=== PATIENT | female | born 1960 | race Caucasian/White ===

== ENCOUNTER 2017-02-08 19:23 | Emergency (ER) | payer MEDICAID ==
--- NOTE | 2017-02-08 19:31 | EDPHY ---
H & P Source: Patient, EMS - Medical/Surgical History Other PMH: Unable to obtain medical history - Social History Smoking Status: Unknown if ever smoked HPI/ROS: HPI CHIEF COMPLAINT: Alcohol Intoxication HISTORY OF PRESENT ILLNESS: This patient 56-year-old female she presents emergency room by EMS for acute alcohol intoxication apparently got in an argument with her mom who is her calciner operator helper/physical altercation and now is under police custody. The patient admits to me drinking lots of alcohol this evening. She will quantify or specify exactly which she drank. She denies any co-ingestion or other drugs. Denies wanting to hurt herself or anybody else. Upon arrival here in the emergency room by EMS she is intoxicated smells of alcohol slurring her speech with horizontal beating nystagmus with acute alcohol intoxication. Past Medical History: ?CVA Past Surgical History: Denies recent surgical history Social History: Alcohol use Family History: Noncontributory ROS REVIEW OF SYSTEMS: Review of systems limited due to patient's clinical state of intoxication. Exam Constitutional Intoxicated, triage nursing summary reviewed, vital signs reviewed, Sleepy, smells of alcohol Eyes normal conjunctivae and sclera, horizontal beating nystagmus consistent acute alcohol intoxication, otherwise pupils equal and react to light HENT normal inspection, atraumatic, moist mucus membranes, no epistaxis, neck supple/ no meningismus, no raccoon eyes. Respiratory clear to auscultation bilaterally, normal breath sounds, no respiratory distress, no wheezing. Cardiovascular rate normal, regular rhythm, no murmur, no edema, distal pulses normal. Gastrointestinal soft, non-tender, no rebound, no guarding, normal bowel sounds, no distension, no pulsatile mass. Genitourinary no CVA tenderness. Musculoskeletal no midline vertebral tenderness, full range of motion, no calf swelling, no tenderness of extremities, no meningismus, good pulses, neurovascularly intact. Skin pink, warm, & dry, no rash, skin atraumatic. Neurologic sleepy, intoxicated with alcohol,, alert and oriented x 3, AAOx3, moves all 4 extremities equally, motor intact, sensory intact, CN II-XII intact , , normal vision, normal speech. Psychiatric normal mood/affect. Heme/Lymph/Immune no lymphadenopathy. Differential Diagnosis: Includes but is not limited to in a particular order acute alcohol intoxication, alcohol abuse, dehydration, electrolyte abnormality , nausea vomiting from acute alcohol intoxication Medical Decision Making: Plan for this patient IV establishment, IV fluid bolus , check electrolytes, alcohol level. quality assurance monitor final. Re-evaluate. Re-evaluation: 2016: The patient does have elevated alcohol level. Also noted a see med if and mildly elevated but not acutely toxic. Unknown time of ingestion of unknown how much she took. Not endorsing any Tylenol overdose. Will need to repeat Tylenol and aspirin 4 hour level. She is under police custody. They would like to be notified when she is discharged Patient signed over to at 9pm shift change. (Cyrus Mendieta) Constitutional: Initial Vital Signs Temperature (C) 36.8 C 02/08/17 19:39 Heart Rate 105 H 02/08/17 19:39 Respiratory Rate 17 02/08/17 19:39 Blood Pressure 119/92 H 02/08/17 19:39 O2 Sat (%) 94 02/08/17 19:39 O2 Delivery Mode Room Air Allergies/Adverse Reactions: iron dextran complex Allergy (Verified 02/08/17 19:39) methadone Allergy (Verified 02/08/17 19:39) propoxyphene Allergy (Verified 02/08/17 19:39) tramadol Allergy (Verified 02/08/17 19:39) Home Medications: Medication Instructions Recorded Unobtainable 05/02/16 Medical Decision Making ED Course/Re-evaluation: 11:00 p.m. care transferred to Dr. Barlow. (Cononr Boland) 2300 patient signed out to me from Dr. Boland pending 4 hour Tylenol level. If this is negative patient will need medical clearance for correction. 0055 4 hour Tylenol level is 0. Patient is ambulatory and is now medically clear for correction. (Brody Barlow) - Data Points Laboratory Results: Laboratory Results 02/08/17 19:40 02/08/17 19:40 02/08/17 02/08/17 02/08/17 23:40 19:40 19:40 WBC RBC Hgb Hct MCV MCH MCHC RDW Plt Count MPV Neut % (Auto) Lymph % (Auto) [place] % (Auto) Eos % (Auto) Baso % (Auto) Nucleat RBC Rel Count Absolute Neuts (auto) Absolute Lymphs (auto) Absolute Monos (auto) Absolute Eos (auto) Absolute Basos (auto) Absolute Nucleated RBC Immature Gran % Immature Gran # Sodium 144 mEq/L mEq/L (134-144) Potassium 3.4 mEq/L L mEq/L (3.5-5.2) Chloride 111 mEq/L H mEq/L (97-110) Carbon Dioxide 14 mEq/l L mEq/l (22-31) Anion Gap 19 mEq/L H mEq/L (8-16) BUN 21 mg/dL mg/dL (7-23) Creatinine 0.9 mg/dL mg/dL (0.6-1.0) Estimated GFR > 60 Glucose 100 mg/dL mg/dL (70-100) Calcium 9.5 mg/dL mg/dL (8.5-10.4) Salicylates < 1.0 mg/dL L mg/dL 1.4 mg/dL L mg/dL 1.4 mg/dL L mg/dL (2.0-20.0) (2.0-20.0) (2.0-20.0) Acetaminophen < 10 mcg/mL L mcg/mL 17 mcg/mL mcg/mL 18 mcg/mL mcg/mL (10.0-30.0) (10.0-30.0) (10.0-30.0) Ethyl Alcohol 297 mg/dL H mg/dL (0-10) 02/08/17 19:40 WBC 9.08 10^3/uL 10^3/uL (3.80-9.50) RBC 4.50 10^6/uL 10^6/uL (4.18-5.33) Hgb 12.1 g/dL L g/dL (12.6-16.3) Hct 37.4 % L % (38.0-47.0) MCV 83.1 fL fL (81.5-99.8) MCH 26.9 pg L pg (27.9-34.1) MCHC 32.4 g/dL g/dL (32.4-36.7) RDW 15.7 % H % (11.5-15.2) Plt Count 332 10^3/uL 10^3/uL (150-400) MPV 9.7 fL fL (8.7-11.7) Neut % (Auto) 47.8 % % (39.3-74.2) Lymph % (Auto) 37.2 % % (15.0-45.0) [place] % (Auto) 7.0 % % (4.5-13.0) Eos % (Auto) 6.8 % % (0.6-7.6) Baso % (Auto) 0.9 % % (0.3-1.7) Nucleat RBC Rel Count 0.0 % % (0.0-0.2) Absolute Neuts (auto) 4.33 10^3/uL 10^3/uL (1.70-6.50) Absolute Lymphs (auto) 3.38 10^3/uL H 10^3/uL (1.00-3.00) Absolute Monos (auto) 0.64 10^3/uL 10^3/uL (0.30-0.80) Absolute Eos (auto) 0.62 10^3/uL H 10^3/uL (0.03-0.40) Absolute Basos (auto) 0.08 10^3/uL 10^3/uL (0.02-0.10) Absolute Nucleated RBC 0.00 10^3/uL 10^3/uL (0-0.01) Immature Gran % 0.3 % % (0.0-1.1) Immature Gran # 0.03 10^3/uL 10^3/uL (0.00-0.10) Sodium Potassium Chloride Carbon Dioxide Anion Gap BUN Creatinine Estimated GFR Glucose Calcium Salicylates Acetaminophen Ethyl Alcohol Medications Given: Discontinued Medications Sodium Chloride (Ns) 1,000 mls @ 0 mls/hr IV ONCE ONE; Wide Open PRN Reason: Protocol Stop: 02/08/17 19:33 Last Admin: 02/08/17 19:57 Dose: 1,000 mls Sodium Chloride (Ns) 1,000 mls @ 0 mls/hr IV ONCE ONE PRN Reason: Wide Open Stop: 02/08/17 20:03 Last Admin: 02/08/17 21:30 Dose: 1,000 mls Departure - Departure Disposition: Home, Routine, Self-Care Clinical Impression: Alcoholic intoxication Qualifiers: Complication of substance-induced condition: uncomplicated Qualified Code(s): F10.920 - Alcohol use, unspecified with intoxication, uncomplicated Condition: Good Instructions: Alcohol Intoxication (ED) Additional Instructions: Medically clear for correction. Referrals: Patient,NotPresent [Primary Care Provider] - As per Instructions
[2017-02-08] MEDS ORDERED: NS 1,000 ML IV ONE ×2 (19:32→20:02)
[2017-02-08 19:40] VITALS: TEMP 98.2
[2017-02-08 19:47] LABS: % IMMATURE GRANULYOCYTES 0.3 % (0.0-1.1); ABSOLUTE IMMATURE GRANULOCYTES 0.03 10^3/uL (0.00-0.10); ADD DIFF? NO; ADD MORPH? NO; ADD SCAN? NO; ATYPICAL LYMPHOCYTE FLAG 20 (0-99); FRAGMENT RBC FLAG 0 (0-99); HEMATOCRIT 37.4 % (38.0-47.0); HEMOGLOBIN 12.1 g/dL (12.6-16.3); LEFT SHIFT FLG 0 (0-99); LIPEMIA HEMOLYSIS FLAG 80 (0-99); MEAN CELL HEMOGLOBIN 26.9 pg (27.9-34.1); MEAN CELL HEMOGLOBIN CONCENTR. 32.4 g/dL (32.4-36.7); MEAN CELL VOLUME 83.1 fL (81.5-99.8); MEAN PLATELET VOLUME 9.7 fL (8.7-11.7); PLATELET CLUMPS FLAG 0 (0-99); PLATELET COUNT 332 10^3/uL (150-400); RED CELL DISTRIBUTION WIDTH 15.7 % (11.5-15.2)
[2017-02-08 20:00] LABS: ANION GAP 19 mEq/L (8-16); CALCIUM 9.5 mg/dL (8.5-10.4); CARBON DIOXIDE 14 mEq/l (22-31); CHLORIDE 111 mEq/L (97-110); CREATININE 0.9 mg/dL (0.6-1.0); ETHANOL SERUM 297 mg/dL (0-10); GLOMERULAR FILTRATION RATE > 60; GLUCOSE 100 mg/dL (70-100); POTASSIUM 3.4 mEq/L (3.5-5.2); SALICYLATE 1.4 mg/dL (2.0-20.0); SODIUM 144 mEq/L (134-144)
[2017-02-08 23:29] LABS: SALICYLATE 1.4 mg/dL (2.0-20.0)
[2017-02-08 23:42] VITALS: O2SAT 92
[2017-02-09 00:35] LABS: SALICYLATE < 1.0 mg/dL (2.0-20.0)
[2017-02-09 01:32] VITALS: BP 93/61; PULSE 86; RESP 16
== END 2017-02-09 01:27 | disposition home or self-care (01) ==
LOC: EDUNIT# → MERGE 19:23
DX: F10.920 Alcohol use, unspecified with intoxication, uncomplicated (principal)
CPT/HCPCS: G0480

== ENCOUNTER 2017-02-23 18:51 | Emergency (ER) | payer MEDICAID ==
[2017-02-23 18:55] VITALS: BP 118/91; PULSE 129; RESP 18; TEMP 98.1; O2SAT 94
--- NOTE | 2017-02-23 18:58 | EDPHY ---
H & P Stated Complaint: medical clearance--accompanied by officer Time Seen by Provider: 02/23/17 18:56 - Personal History Current Tetanus Diphtheria and Acellular Pertussis (TDAP): Yes Tetanus Vaccine Date: < 10 YEARS - Medical/Surgical History Hx Asthma: No Hx Chronic Respiratory Disease: No Hx Diabetes: No Hx Cardiac Disease: No Hx Renal Disease: No Hx Cirrhosis: No Hx Alcoholism: Yes Hx HIV/AIDS: No Hx Splenectomy or Spleen Trauma: No Other PMH: denies - Social History Smoking Status: Former smoker Constitutional: Initial Vital Signs Temperature (C) 36.7 C 02/23/17 18:51 Heart Rate 129 H 02/23/17 18:51 Respiratory Rate 18 02/23/17 18:51 Blood Pressure 118/91 H 02/23/17 18:51 O2 Sat (%) 94 02/23/17 18:51 O2 Delivery Mode Room Air Allergies/Adverse Reactions: iron dextran complex Allergy (Verified 02/08/17 19:39) methadone Allergy (Verified 02/08/17 19:39) propoxyphene Allergy (Verified 02/08/17 19:39) tramadol Allergy (Verified 02/08/17 19:39) Home Medications: Medication Instructions Recorded Unobtainable 05/02/16 morphINE IR 05/14/16 Medical Decision Making ED Course/Re-evaluation: CHIEF COMPLAINT: "drunk" HISTORY OF PRESENT ILLNESS: The patient is a 56 y/o female arriving in [facility] custody for medical clearance at the request of the longterm nurse. Per officer, the patient admitted to alcohol use earlier today, but denied any other ingestions. An officer at the longterm found multiple pill bottles and the longterm nurse requested medical evaluation at the ED in case the patient had consumed something else. The patient denies anything other than alcohol use. She has no complaints. REVIEW OF SYSTEMS: A 10 point review of systems was performed and is negative with the exception of the elements mentioned in the history of present illness. PHYSICAL EXAM: HR, BP, O2 Sat, RR. Temp noted General Appearance: Alert, well hydrated, appropriate, and non-toxic appearing. Head: Atraumatic without scalp tenderness or obvious injury Eyes: Pupils equal, round, reactive to light and accommodation, EOMI, no trauma , no injection. Nose: Atraumatic, no rhinorrhea, clear. Throat: Mucus membranes moist. Neck: Supple, nontender, no lymphadenopathy. Respiratory: No retractions, no distress, no wheezes, and no accessory muscle use. Lungs are clear to auscultation bilaterally. Cardiovascular: Regular rate and rhythm, no murmurs, rubs, or gallops. Good capillary refill all extremities. Gastrointestinal: Abdomen is soft, nontender, non-distended, no masses, no rebound, no guarding, no peritoneal signs. Musculoskeletal: Normal active ROM of all extremities, atraumatic. Neurological: Alert, appropriate, and interactive. Nonfocal neuro exam. Slurred speech consistent with baseline and alcohol use. Skin: No rashes, good turgor, no nodules on palpation. Past medical history: Alcohol abuse, CVA Past surgical history: denies Family history: noncontributory Social history: alcohol abuse, in PD custody for intoxicated driving DIFFERENTIAL DIAGNOSIS: The differential diagnosis for the patient's presentation included but was not limited to alcohol intoxication, persisting deficits from prior CVA. MEDICAL DECISION MAKING: This is a 56 y/o female with a history of a CVA who presents for medical clearance from the longterm due to concern for drug ingestion. The patient has no complaints. Urine tox ordered. Breath alcohol is 102. UA tox is only nonnegative for opiates. Patient will be discharged back to the longterm in stable condition. Return precautions given. - Data Points Laboratory Results: 02/23/17 19:06 Urine Opiates Screen NON-NEGATIVE H (NEGATIVE) Urine Barbiturates NEGATIVE (NEGATIVE) Ur Phencyclidine Scrn NEGATIVE (NEGATIVE) Ur Amphetamine Screen NEGATIVE (NEGATIVE) Ur Amphetamines Screen Pending U Benzodiazepines Scrn NEGATIVE (NEGATIVE) Urine Cocaine Screen NEGATIVE (NEGATIVE) U Marijuana (THC) Screen NEGATIVE (NEGATIVE) Departure - Departure Disposition: Home, Routine, Self-Care Clinical Impression: Alcoholic intoxication Qualifiers: Complication of substance-induced condition: uncomplicated Qualified Code(s): F10.920 - Alcohol use, unspecified with intoxication, uncomplicated Condition: Good Instructions: Alcohol Intoxication (ED) Additional Instructions: Medically clear for longterm. Patient's breath alcohol is 102. She has a prior history of a stroke with a baseline speech impediment. This is exacerbated by alcohol causing her speech to sound slurred. Referrals: NONE *PRIMARY CARE P,. [Primary Care Provider] - As per Instructions [facility] 24 Hours [Outside] - As per Instructions Report Scribed for: Matt Ayala Report Scribed by: Pamella Macedo Date of Report: 02/23/17 Time of Report: 19:11
[2017-02-23 19:44] LABS: PHENCYCLIDINE URINE BCH < 6 ng/ml (NEGATIVE); PHENCYCLIDINE URINE BCH NEGATIVE (NEGATIVE); TETRAHYDROCANNABINOL URINE < 5 ng/mL (NEGATIVE); TETRAHYDROCANNABINOL URINE NEGATIVE (NEGATIVE)
== END 2017-02-23 19:40 | disposition home or self-care (01) ==
DX: F10.120 Alcohol abuse with intoxication, uncomplicated (principal); Z86.73 Personal history of transient ischemic attack (TIA), and cerebral infarction without residual deficits; Z87.891 Personal history of nicotine dependence
CPT/HCPCS: 80305; 80307; G0480

== ENCOUNTER 2018-06-03 20:50 | Emergency (ER) | payer MEDICAID ==
[2018-06-03 20:56] VITALS: BP 123/84
--- NOTE | 2018-06-03 21:01 | EDPHY ---
H & P Stated Complaint: bleeding s/p srgy 05/30 Time Seen by Provider: 06/03/18 21:12 HPI/ROS: HPI CHIEF COMPLAINT: Wet splint, splint takedown, bleeding HISTORY OF PRESENT ILLNESS: This is a very pleasant 57-year-old female she has had a history of a CVA, only takes aspirin, has expressive aphasia, presents emergency room with a wet left thumb spica splint, additionally some bleeding underneath it. Patient states she recently had some surgery at [facility] on Wednesday or 5 days ago. She had this for torn cartilage in a fracture of her thumb. She states she has pains placed in it. She tells me she is due to have this splint in place soft for 2 weeks. And then transition to hard splint. Patient denies any fever. She does report that she got this wet during 1 of her showers. The patient's hand surgeons Dr. Acosta. Past Medical History: History of CVA Past Surgical History: Left thumb surgery on Wednesday. 5 days ago. Social History: Denies drugs alcohol tobacco. Family History: Noncontributory ROS REVIEW OF SYSTEMS: 10 Systems were reviewed and negative with the exception of the elements mentioned in the history of present illness. Exam Constitutional triage nursing summary reviewed, vital signs reviewed, awake/ alert. Eyes normal conjunctivae and sclera, EOMI, PERRLA. HENT normal inspection, atraumatic, moist mucus membranes, no epistaxis, neck supple/ no meningismus, no raccoon eyes. Respiratory clear to auscultation bilaterally, normal breath sounds, no respiratory distress, no wheezing. Cardiovascular rate normal, regular rhythm, no murmur, no edema, distal pulses normal. Gastrointestinal soft, non-tender, no rebound, no guarding, normal bowel sounds, no distension, no pulsatile mass. Genitourinary no CVA tenderness. Musculoskeletal left: In a soft splint. The splint is wet. no midline vertebral tenderness, full range of motion, no calf swelling, no tenderness of extremities, no meningismus, good pulses, neurovascularly intact. Skin pink, warm, & dry, no rash, skin atraumatic. Neurologic awake, alert and oriented x 3, AAOx3, moves all 4 extremities equally, motor intact, sensory intact, CN II-XII intact, normal cerebellar, normal vision, normal speech. Psychiatric normal mood/affect. Heme/Lymph/Immune no lymphadenopathy. Differential Diagnosis: Includes but is not limited to in a particular order need for new splint, evaluate for wound for bleeding and infection. Medical Decision Making: Plan for this patient will take her splint down. Evaluated wound for bleeding or infection. And will re-splint her. Re-evaluation: Patient splint was taken down. The wound was evaluated. There is no signs of infection. No significant bleeding. It appears that her splint got wet. There is no wet gangrene or evidence of infection on exam. The patient's surgical wound appears clean, dry and intact. Plan will be for re-splint. Follow-up hand surgeon. Return if worsening symptoms. No signs of compartment syndrome on exam neurovascular intact. Source: Patient - Personal History Current Tetanus/Diphtheria Vaccine: Yes Current Tetanus Diphtheria and Acellular Pertussis (TDAP): Yes Tetanus Vaccine Date: < 10 YEARS - Medical/Surgical History Hx Asthma: No Hx Chronic Respiratory Disease: No Hx Diabetes: No Hx Cardiac Disease: No Hx Renal Disease: No Hx Cirrhosis: No Hx Alcoholism: Yes Hx HIV/AIDS: No Hx Splenectomy or Spleen Trauma: No Other PMH: ETOH abuse - Social History Smoking Status: Former smoker Constitutional: Initial Vital Signs Heart Rate 88 06/03/18 20:53 Respiratory Rate 16 06/03/18 20:53 Blood Pressure 123/84 H 06/03/18 20:53 O2 Sat (%) 96 06/03/18 20:53 O2 Delivery Mode Room Air Allergies/Adverse Reactions: iron dextran complex Allergy (Verified 02/08/17 19:39) methadone Allergy (Verified 02/08/17 19:39) propoxyphene Allergy (Verified 02/08/17 19:39) tramadol Allergy (Verified 02/08/17 19:39) Home Medications: Medication Instructions Recorded Unobtainable 05/02/16 morphINE IR 05/14/16 Departure - Departure Disposition: Home, Routine, Self-Care Clinical Impression: Wound drainage Condition: Good Instructions: Splint Care (ED) Additional Instructions: 1. Follow up with your hand surgeon 2. Return emergency room if increasing pain, swelling, redness, questions or concerns Referrals: Patient,NotPresent [Unknown] - As per Instructions
== END 2018-06-03 21:34 | disposition home or self-care (01) ==
PROC: 2W3FX1Z Immobilization of Left Hand using Splint (ICD-10-PCS; principal; 2018-06-03)
DX: S62.502D Fracture of unspecified phalanx of left thumb, subsequent encounter for fracture with routine healing (principal); R58 Hemorrhage, not elsewhere classified; Z98.890 Other specified postprocedural states